=== PATIENT | female | born 1970 | race African-American/Black ===

== ENCOUNTER 2020-01-31 23:19 | Emergency (ER) | payer OTHER ==
[~2020-01-31] VITALS: Ht 162.6 cm; Wt 122.9 kg
[2020-01-31 23:25] VITALS: BP 149/91
[2020-01-31] MEDS ORDERED: PROAIR HFA8.5 GM INH (23:38)
[2020-02-01 00:07] LABS: HEMATOCRIT 40.1 % (37.0-47.0); HEMOGLOBIN 13.4 gm/dL (12.0-15.0); MCHC 33.3 g/dL (28.0-37.0); MCV 84.1 fL (80.0-100.0); NUCLEATED RBCS 0 /100WBC; PLATELET COUNT* 240 thou/uL (150-400); RBC 4.77 mil/uL (4.20-5.00); RDW-CV 13.5 % (10.5-14.5); WBC 11.5 thou/uL (4.0-11.0)
[2020-02-01 00:12] LABS: CALCIUM 7.7 mg/dL (8.5-10.1); CREATININE 0.9 mg/dL (0.6-1.3); POTASSIUM 3.9 mmol/L (3.5-5.1)
[2020-02-01 00:16] LABS: PROTIME 9.8 Seconds (9.20-11.50)
[2020-02-01 00:17] LABS: ALBUMIN 3.2 g/dL (3.4-5.0); TOTAL BILIRUBIN 0.3 mg/dL (<0.1-1.0); TOTAL PROTEIN 7.7 g/dL (6.4-8.2)
[2020-02-01] MEDS ORDERED: PROAIR HFA8.5 GM INH (01:22)
[2020-02-01] MEDS ORDERED: PREDNISONE50 MG PO (01:22)
[2020-02-01 01:46] LABS: ABSOLUTE EOSINOPHILS 1.4 thou/uL (0.0-0.7); ABSOLUTE LYMPHOCYTES 2.4 thou/uL (0.8-5.3); ABSOLUTE MONOCYTES 0.9 thou/uL (0.0-1.2); ABSOLUTE NEUTROPHILS 6.8 thou/uL (1.6-8.1); PLATELET ESTIMATE ADEQUATE
--- NOTE | 2020-02-02 14:51 | EKG ---
[place] [address] ELECTROCARDIOGRAM REPORT Name: RODGER COOK Bong Room: [facility]#: [id number] Admission: 01/31/20 Attend Phys: Discharge: 02/01/20 Date of : 74 Date of Service: 01/31/202327 Report #: [id number] THIS REPORT FOR: //name// [facility] ED Test Date: 2020-01-31 Test Time: 23:28:22 Pat Name: RODGER COOK Department: Room: Gender: F [employer] [employer] Positioner: [place]RE[place] : 1970 Requested By: Josselin Yañez Order Number: [id number] PATEL: Prateek Ascencio Measurements Intervals [place] Rate: 93 P: 23 TX: 131 QRS: 23 QRSD: 75 T: 7 QT: 327 QTc: 407 Interpretive Statements Sinus rhythm No previous ECG available for comparison Electronically Signed On 02-02-2020 14:50:20 CDT by Prateek Ascencio [email or web address] <ELECTRONICALLY SIGNED> By: Prateek Ascencio MD, [facility] 02/02/20 1450 27 27 Prateek Ascencio MD, FACC /EPI
== END 2020-02-01 01:53 | disposition home or self-care (01) ==
LOC: M.ERS 23:19
PROVIDERS: Emergency Medicine
DX: J40 Bronchitis, not specified as acute or chronic (principal); Z20.828 Contact with and (suspected) exposure to other viral communicable diseases; Z91.040 Latex allergy status; Z88.6 Allergy status to analgesic agent; Z88.8 Allergy status to other drugs, medicaments and biological substances